=== PATIENT | female | born 1950 | race Caucasian/White ===

== ENCOUNTER 2021-11-29 17:44 | Emergency (ER) | payer OTHER ==
[~2021-11-29] VITALS: Ht 167.6 cm; Wt 72.6 kg
[2021-11-29 17:50] VITALS: BP 141/59
[2021-11-29 18:22] LABS: BASOPHILS % (AUTO) 0.1 % (0.0-2.0); HEMATOCRIT 36.2 % (36-48); HEMOGLOBIN 12.1 g/dL (12.0-16.0); LYMPHOCYTES # (AUTO) 0.9 K/uL (2.5-16.5); LYMPHOCYTES % (AUTO) 5.9 % (20.5-51.1); MEAN CORPUSCULAR HEMOGLOBIN 27 pg (27-31); MEAN CORPUSCULAR HGB CONC 34 g/dL (33-37); MEAN CORPUSCULAR VOLUME 81.3 fL (80-94); MONOCYTES # (AUTO) 1.1 K/uL (0.8-1.0); MONOCYTES % (AUTO) 7.1 % (1.7-9.3); NEUTROPHILS # (AUTO) 13.2 K/uL (1.8-7.7); NEUTROPHILS % (AUTO) 86.9 % (42.2-75.2); PLATELET COUNT (AUTO) 202 K/uL (140-450); RED BLOOD CELL COUNT(AUTO) 4.45 MIL/uL (4.20-5.40); WHITE BLOOD COUNT (AUTO) 15.2 K/uL (4.8-10.8)
[2021-11-29 18:38] LABS: ALBUMIN 2.7 g/dL (3.4-5.0); ANION GAP 14.5 (8-16); CARBON DIOXIDE 23.1 mmol/L (21-32); CHLORIDE 93 mmol/L (98-107); GFR ARICAN-AMERICAN 70 mL/min (>90); GLUCOSE 85 mg/dL (74-106); LIPASE 35 U/L (73-393); POTASSIUM 3.6 mmol/L (3.5-5.1); SODIUM SERUM 127 mmol/L (136-145); UREA NITROGEN, BLOOD 18 mg/dL (7-18)
[2021-11-29] MEDS ORDERED: FAMOTIDINE 20 MG/2 ML VIAL IVP ONE (21:35)
[2021-11-29] MEDS ORDERED: NACL 0.9% 1,000 ML IV ONE (21:35)
[2021-11-29] MEDS ORDERED: KETOROLAC 15 MG/ML VIAL ONE (22:04)
--- NOTE | 2021-11-29 22:28 | NUR ---
pt to 11
[2021-11-29 22:57] LABS: APPEARANCE,URINE SL CLOUDY (CLEAR); BILIRUBIN,URINE NEGATIVE (NEGATIVE); BLOOD, URINE 3+ (NEGATIVE); COLOR,URINE DARK YELLOW (YELLOW); LEUKOCYTE ESTERASE ,URINE 1+ (NEGATIVE); NITRITE, URINE NEGATIVE (NEGATIVE); UGLUCOSE 3+ (NEGATIVE)
[2021-11-29 23:13] LABS: RBC,URINE 0-5 /HPF (0-5); WBC,URINE 20-60 /HPF (0-5)
--- NOTE | 2021-11-29 23:58 | NUR ---
NAD at this time. VSS
[2021-11-30] MEDS ORDERED: cefTRIAXone 1,000 MG in DEXT 5% MINI-BAG PLUS 50 ML IV ONE (01:30)
[2021-11-30 01:51] VITALS: BP 123/62
[2021-11-30] MEDS ORDERED: cefTRIAXone 1,000 MG VIAL ONE (01:52)
[2021-11-30] MEDS ORDERED: CEPH-588 PO (02:27)
--- NOTE | 2021-11-30 02:34 | NUR ---
d/c with VSS. d/c education given. opportunity to ask questions given and answered. rx of keflex given. IV site removed, bleeding controlled with sterile gauze and reinforced with tape.
--- NOTE | 2021-11-30 22:33 | NUR ---
late entry----- @2223- received call from [facility] for + blood culture, gram negative rods found in aerobic bottle @2229- attempted to contact pt and person to notify numbers on file x 3 with no answered. Left voicemail
== END 2021-11-30 02:34 | disposition home or self-care (01) ==
LOC: MED 17:44
DX: N12 Tubulo-interstitial nephritis, not specified as acute or chronic (principal); E87.1 Hypo-osmolality and hyponatremia; E11.9 Type 2 diabetes mellitus without complications; I10 Essential (primary) hypertension; Z79.4 Long term (current) use of insulin; Z79.899 Other long term (current) drug therapy
CPT/HCPCS: 36415; 74177; 80053; 81001; 83605; 83690; 85025; 87040; 87086; 96361; 96365; 96375; 99285; J0696; J1885; J3490; Q9967